=== PATIENT | female | born 1960 | race Caucasian/White ===

== ENCOUNTER 2016-08-16 05:29 | Inpatient (IN) | payer OTHER ==
[2016-08-13 15:46] VITALS: BMI 42.3
[2016-08-16] VITALS (14 sets, daily range): BP systolic 97–140; BP diastolic 51–77; PULSE 72–92; RESP 16–25; Ht 160 cm; Wt 103.6 kg
[~2016-08-16] VITALS: Ht 160 cm; Wt 103.6 kg
[2016-08-16] MEDS ORDERED: POVIDONE IODINE 10% 28.4 GM OINT ONE (06:44)
[2016-08-16 06:45] LABS: ADD SCAN DIFF NO
[2016-08-16] MEDS ORDERED: POLYMYXIN/BACITRACIN 1L IRRIG ONE ×2 (06:45→10:15)
[2016-08-16] MEDS ORDERED: ROPIVACAINE 0.5 % 30 ML VIAL ONE ×2 (06:47→07:27)
[2016-08-16 06:51] LABS: BASOPHIL # 0.1 10^3/ul (0.0-0.1); BASOPHILS % 0.7 % (0.0-2.0); EOSINOPHILS # 0.4 10^3/ul (0.0-0.5); EOSINOPHILS % 4.3 % (0.0-7.0); HEMATOCRIT 39.3 % (37.0-47.0); HEMOGLOBIN 13.3 g/dl (12.0-16.0); LYMPHOCYTES # 2.2 10^3/ul (0.8-2.9); LYMPHOCYTES % 26.3 % (15.0-51.0); MEAN CORPUSCULAR HEMOGLOBIN 28.6 pg (29.0-33.0); MEAN CORPUSCULAR HGB CONC 33.8 g/dl (32.0-37.0); MEAN CORPUSCULAR VOLUME 84.5 fl (82.0-101.0); MEAN PLATELET VOLUME 10.1 fl (7.4-10.4); MONOCYTE # 0.5 10^3/ul (0.3-0.9); MONOCYTES % 5.8 % (0.0-11.0); NEUTROPHIL # 5.3 10^3/ul (1.6-7.5); NEUTROPHILS % 62.8 % (39.0-77.0); PLATELET COUNT 312 10^3/UL (140-415); RED BLOOD COUNT 4.65 10^6/ul (4.20-5.40); RED CELL DISTRIBUTION WIDTH 13.5 % (11.5-14.5); WHITE BLOOD COUNT 8.4 10^3/ul (4.8-10.8)
--- NOTE | 2016-08-16 06:58 | HPN ---
Date/Time of Note Date/Time of Note DATE: 08/16/16 TIME: 06:58 Interval H&P Admission Note Pt. seen H&P reviewed: No system changes LUH FOREMAN MD Aug 16, 2016 06:58
[2016-08-16] MEDS ORDERED: PROPOFOL 200 MG INJ ONE (07:00)
[2016-08-16] MEDS ORDERED: SUCCINYLCHOLINE CHLORIDE 100 MG/5 ML SYG IV ONE (07:00)
[2016-08-16] MEDS ORDERED: CEFAZOLIN 1 GM INJ ONE (07:00)
[2016-08-16 07:01] LABS: INR 0.92; PROTIME 12.4 Sec (12.2-14.2)
[2016-08-16 07:02] LABS: PARTIAL THROMBOPLASTIN TIME 31.7 Sec (25.0-35.0)
[2016-08-16] MEDS ORDERED: PROPOFOL 100 ML ONE ×2 (07:05→07:29)
[2016-08-16] MEDS ORDERED: ROCURONIUM 50 MG INJ ONE (07:05)
[2016-08-16] MEDS ORDERED: MIDAZOLAM 1 MG/ML 2 ML INJ ONE (07:06)
[2016-08-16] MEDS ORDERED: ONDANSETRON 4 MG INJ ONE (07:06)
[2016-08-16] MEDS ORDERED: DEXAMETHASONE 4 MG/ML 1 ML INJ ONE (07:07)
[2016-08-16 07:11] LABS: ALBUMIN/GLOBULIN RATIO 1.21; BILIRUBIN,INDIRECT 0.1 mg/dl (0-1.1); BILIRUBIN,TOTAL 0.1 mg/dl (0.2-1.3); TOTAL PROTEIN 7.3 g/dl (6.1-8.1)
[2016-08-16 07:13] LABS: CREATININE 0.64 mg/dl (0.44-1.00); POTASSIUM 3.5 mmol/L (3.5-5.1)
[2016-08-16] MEDS ORDERED: THROMBIN 5000 UNIT VIAL ONE (07:27)
[2016-08-16] MEDS ORDERED: GELATIN SIZE 100 SPONGE ONE (07:27)
[2016-08-16] MEDS ORDERED: HEPARIN 1000 UNITS/ML 10 ML INJ ONE (07:27)
[2016-08-16] MEDS ORDERED: morphine 2 MG INJ IV PRN (07:30)
[2016-08-16] MEDS ORDERED: OXYCODONE/ACETAMINOPHEN (5/325) TAB PO PRN ×2 (07:30→12:00)
[2016-08-16 07:32] LABS: ADD UMIC YES; URINE BILIRUBIN (Dip) NEGATIVE (NEGATIVE); URINE BLOOD (Dip) NEGATIVE (NEGATIVE); URINE COLOR LT. YELLOW (YELLOW); URINE GLUCOSE (Dip) NEGATIVE (NEGATIVE); URINE KETONES (Dip) NEGATIVE (NEGATIVE); URINE LEUKOCYTE ESTERASE (Dip) TRACE (NEGATIVE); URINE NITRITE (Dip) NEGATIVE (NEGATIVE); URINE TOTAL PROTEIN (Dip) NEGATIVE (NEGATIVE); URINE UROBILINOGEN (Dip) 0.2 E.U./dL (0.1-1.0)
[2016-08-16 07:59] LABS: MUCUS,URINE RARE; URINE RBCS NONE SEEN /HPF (0)
[2016-08-16] MEDS ORDERED: TRIMETHOBENZAMIDE 100 MG/ML VIAL IM PRN (08:30)
[2016-08-16] MEDS ORDERED: MIDAZOLAM 1 MG/ML 2 ML INJ IV PRN (08:30)
[2016-08-16] MEDS ORDERED: EPHEDrine SULFATE 50 MG/5 ML SYG IV PRN (08:30)
[2016-08-16] MEDS ORDERED: ONDANSETRON 4 MG INJ IV PRN ×2 (08:30→12:00)
[2016-08-16] MEDS ORDERED: HYDROmorphONE (0.2 MG/ML) 10ML SYG IV PRN ×2 (08:30)
[2016-08-16] MEDS ORDERED: LABETALOL HCL 20MG INJ IV PRN (08:30)
[2016-08-16] MEDS ORDERED: MEPERIDINE 25 MG INJ IV PRN (08:30)
[2016-08-16] MEDS ORDERED: FENTAnyl 50 MCG/ML VIAL IV PRN ×3 (08:30)
[2016-08-16] MEDS ORDERED: DIPHENHYDRAMINE 50 MG INJ IV PRN (08:30)
[2016-08-16] MEDS ORDERED: hydrALAzine 20 MG INJ IV PRN (08:30)
[2016-08-16] MEDS: SOD CHLORIDE 0.9% 1,000 ML IV SCH ×3 (09:30→13:50)
[2016-08-16] MEDS: ONDANSETRON 4 MG INJ IV PRN ×3 (11:44→22:21)
[2016-08-16] MEDS: HYDROmorphONE (0.2 MG/ML) 10ML SYG IV PRN ×3 (11:44→12:00)
[2016-08-16] MEDS ORDERED: DIPHENHYDRAMINE 25 MG CAP PO PRN (12:00)
[2016-08-16] MEDS ORDERED: HYDROmorphONE 0.2 MG/ML PCA IV SCH (12:00)
[2016-08-16] MEDS ORDERED: morphine 10 MG INJ IV PRN (12:00)
[2016-08-16] MEDS ORDERED: CEFAZOLIN 1 GM INJ IV SCH (12:00)
[2016-08-16] MEDS ORDERED: BISACODYL 10 MG SUPP PR PRN (12:00)
[2016-08-16] MEDS: CEFAZOLIN 2 GM/50 ML (PMX) 50 ML IVPB SCH ×2 (12:30→21:26)
[2016-08-16] MEDS ORDERED: LISI10TA2 PO (12:45)
[2016-08-16] MEDS ORDERED: ALPR0.254 (12:45)
[2016-08-16] MEDS ORDERED: OMEP20CA16 (12:45)
--- NOTE | 2016-08-16 12:48 | OPR ---
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 NAME OF OPERATION: 1. Debridement and removal of loose bodies in the talonavicular joint. 2. Arthrodesis talonavicular joint with claw plate and 4.5 AO cannulated screw 3. Iliac crest bone graft, plus Ignite to the fusion site. 4. Use of fluoroscopy to verify position and alignment of the guide pin on the right, and screws. 5. Short-leg cast. SURGEON: Luh Foreman MD LITHOGRAPHIC PROOFER APPRENTICE: Jeronimo Chino MD ANESTHESIA: General with popliteal block. TOURNIQUET TIME: 121 minutes. DESCRIPTION OF PROCEDURE: The patient taken to the operating room and placed in supine position. S atisfactory popliteal block was given. Satisfactory general anesthesia was administered. The right iliac crest and right lower leg were prepped and draped in the usual manner, 2 grams Ancef given in travenously. An incision was made along the iliac crest by pulling the skin up. Dissection carried down to subcutaneous tissue. There was a lot of fat. We were able to get down to the fascia, spli t it and over the iliac crest retracted the fascia. Using a saw, we made saw cuts to make a trap do or. We then took the bone graft out with different angled curettes until we had a lot of bone graft , plus we had bone marrow aspirate which we mixed together. We put thrombin soaked Gelfoam foaming the area and covered it sterilely. Gloves were changed. The tourniquet was inflated to 275 mmHg. Incision was made over the talonavicular joint, medial to t he anterior tibial tendon, dissection carried down to subcutaneous tissue. Bleeders were coagulated as encountered. The anterior tibial tendon sheath was opened in line with its fibers. The talonav icular capsule was opened proximally and distally. The position was verified under fluoroscopy wher e the talonavicular joint. The capsule was peeled off circumferentially laterally and medially. Pi ns were placed in the distraction device was placed across the talonavicular joint. The joint was q uite arthritic. It was hard to see the actual navicular fracture. Using different angled curettes, the articular cartilage was removed off the talus and off the navicular. There were loose bodies a nd debris was removed with a rongeur. All osteophytes were removed. After all the articular cartil age was removed, a bur was used to remove 1 mm of bone on the talus and the navicular. Multiple "sp ot welds" were made with the bur. Multiple drill holes were made with 0.045 K-wire. Blood was draw n from the patient and mixed with the Ignite and was placed in a paste in a syringe. The distractio n device was removed. Bone graft was inserted into the talonavicular joint with the Ignite. Foot w as appropriately placed in neutral dorsi and plantarflexion and rotation when corrected. is fixed with a K-wire and then a 4.0 AO cannulated guide pin screw was inserted medially. The claw pl ate was then fashioned over the talonavicular joint with 2 screws proximal and 2 distal. The screws were sequentially inserted, checked in the lateral and AP x-rays to make sure they were appropriate length. After all 4 screws had been inserted, the claw plate was distracted with a special distrac tion device. The 4.5 screw was then inserted after being measured. Excellent compression was obtai eric. Remaining Ignite bone graft were placed along the talonavicular joint. Wounds were irrigated with antibiotic solution. The capsule was closed with a running 0 PDS, subcutaneous tissue was clos ed with 3-0 undyed Vicryl and skin with 4-0 black nylon. Saphenous nerve block done with 0.5% ropiv acaine. Simultaneously, the thrombin soaked Gelfoam pads were removed from the iliac crest, wound was irriga yesica with antibiotic solution and the fascia was closed with a running 0 PDS, subcutaneous tissue was closed with 2-0 and 3-0 undyed Vicryl, and the skin with a running 3-0 subcuticular Prolene. Steri -Strips and compression dressing was applied. Compression dressing was then applied on the foot and a short leg cast was applied in neutral position. At the end of procedure, sponge and needle count was correct. Patient tolerated procedure well and the cast was split in the recovery room. CERTIFIED NURSING ASSISTANT INSTRUCTOR ORTHOPEDIC SURGEON: During the procedure, an assistant manager orthopedic surgeon was used at my request. The assistant manager helped with distracting the foot, with inserting the screws while I held the foot reduced, and helped with obtaining the bone graft. Without a skilled orthopedic surgeon kath corado, this could not have been performed and should be compensated appropriately. Dictated By: LUH FOREMAN MD RF/NTS Conf#: [id number] DID#: [id number]
--- NOTE | 2016-08-16 12:58 | RADRPT ---
PROCEDURE: XR Foot. CLINICAL INDICATION: Talonavicular fusion. TECHNIQUE: Right foot x-rays, 4 intraoperative fluoroscopic views. Fluoroscopy time: 0.4 minutes. COMPARISON: None. FINDINGS: Talonavicular fusion hardware is in place. Alignment is well maintained. IMPRESSION: Fluoroscopic assistance provided for talonavicular effusion. RPTAT: HLST .Roma Deleon MD, Date Time Electronically viewed and signed by .Roma Deleon MD, on 08/16/2016 12:57 .T/
[2016-08-16] MEDS: SENNA/DOCUSATE NA (8.6MG/50MG) TAB PO SCH (21:00)
[2016-08-17] MEDS: HYDROmorphONE 0.2 MG/ML PCA IV SCH ×2 (00:25→15:52)
[2016-08-17] MEDS: SOD CHLORIDE 0.9% 1,000 ML IV SCH ×3 (00:26→11:57)
[2016-08-17 00:38] VITALS: BP 108/55; RESP 20
[2016-08-17] MEDS: CEFAZOLIN 2 GM/50 ML (PMX) 50 ML IVPB SCH ×3 (05:21→20:27)
[2016-08-17] MEDS: OXYCODONE/ACETAMINOPHEN (5/325) TAB PO PRN ×3 (05:21→20:28)
[2016-08-17 05:51] VITALS: BP 115/59; PULSE 73; RESP 20
--- NOTE | 2016-08-17 07:06 | PN ---
Date/Time of Note Date/Time of Note DATE: 08/17/16 TIME: 07:01 Assessment/Plan VTE Prophylaxis VTE Prophylaxis Intervention: ambulation, SCD's, other Lines/Catheters IV Catheter Type (from Nrsg): Peripheral IV Urinary Cath still in place: No Assessment/Plan Assessment/Plan 55 y/o F POD 1 s/p right talonavicular fusion with right iliac crest autograft - pain control with oral medications and IV for breakthrough - strict elevation RLE when not mobilizing - NWB RLE - PT today for mobilization - SCD's, ambulation and xarelto - DC when pain is well controlled Subjective 24 Hr Interval Summary Free Text/Dictation Pt had pain overnight which is now controlled. She has had some nausea but no emesis. She is voiding freely. She has not worked with PT yet. Respiratory: no complaints Cardiovascular: no complaints Exam/Review of Systems Vital Signs Vitals Vital Signs Date Time Temp Pulse Resp B/P Pulse Ox O2 Delivery O2 Flow Rate FiO2 08/17/16 05:51 98.3 73 20 115/59 97 Room Air Intake and Output 08/16/16 08/16/16 08/17/16 15:00 23:00 07:00 Intake Total 1700 ml 240 ml 1600 ml Output Total 50 ml 500 ml 700 ml Balance 1650 ml -260 ml 900 ml Exam RLE cast is in place, clean and dry. Cast is split and well fitting extremity is elevated + toe wiggle Sensation intact at tips of all toes CR < 2 sec throughout toes calf is soft right hip dressing is clean dry and intact Constitutional: alert, obese, oriented Head: normocephalic Respiratory: normal air movement Cardiovascular: nl pulses Results Result Diagram: 08/16/16 0600 08/16/16 0600 Medications Medications Current Medications Ondansetron HCl (Zofran Inj) 4 mg Q4H PRN IV NAUSEA Last administered on 22:21; Admin Dose 4 MG; Start 08/16/16 at 07:30 Oxycodone/ Acetaminophen (Percocet (5/ 325)) 1 tab Q4H PRN PO PAIN LEVEL 1-3; Start 08/16/16 at 07:30 Oxycodone/ Acetaminophen (Percocet (5/ 325)) 2 tab Q4H PRN PO PAIN LEVEL 4-6 Last administered on 08/17/16 05:21; Admin Dose 2 TAB; Start 08/16/16 at 07:30 Morphine Sulfate (morphine) 2 mg Q1H PRN IV PAIN; Start 08/16/16 at 07:30 Senna/Docusate Sodium (Senokot-S) 1 tab BID PO ; Start 08/16/16 at 21:00 Magnesium Hydroxide (Milk Of Mag) 30 ml HS PO ; Start 08/18/16 at 21:00 Bisacodyl 10 mg 10 mg DAILY PRN AL CONSTIPATION; Start 08/16/16 at 12:00 Sodium Chloride (NS) 1,000 ml @ 100 mls/hr Q10H IV Last administered on 00:26; Admin Dose 100 MLS/HR; Start 08/16/16 at 13:00 Oxycodone/ Acetaminophen (Percocet (5/ 325)) 2 tab Q4H PRN PO PAIN; Start 08/16 at 12:00 Morphine Sulfate (morphine) 5 mg Q4H PRN IV PAIN LEVEL 7-10; Start 08/16/16 at 12:00 Ondansetron HCl (Zofran Inj) 4 mg Q4H PRN IV NAUSEA AND/OR VOMITING; Start at 12:00 Diphenhydramine HCl 25 mg 25 mg Q4H PRN PO ITCHING; Start 08/16/16 at 12:00 Cefazolin Sodium/ Dextrose (Ancef 2 Gm/50 ml (Pmx)) 50 ml @ 100 mls/hr Q8H IVPB Last administered on 08/17/16 05:21; Admin Dose 100 MLS/HR; Start at 12:30; Stop 08/18/16 at 04:59 Influenza Virus Vaccine (Fluzone) 0.5 ml ONCE ONCE IM* ; Start 08/17/16 at 09:00 ; Stop 08/17/16 at 09:01 Hydromorphone HCl (Dilaudid LOCKSTITCH WAISTLINE JOINER) 0.2 MG DOSE 10... Q4PCA IV Last administered on 08/17/16 00:25; Admin Dose 6 MG; Start 08/17/16 at 00:30 LUH FOREMAN MD Aug 17, 2016 07:06
[2016-08-17] MEDS: ONDANSETRON 4 MG INJ IV PRN (07:17)
[2016-08-17 08:02] VITALS: BP 96/52; RESP 18
[2016-08-17] MEDS: SENNA/DOCUSATE NA (8.6MG/50MG) TAB PO SCH ×2 (08:14→20:28)
[2016-08-17] MEDS ORDERED: INFLUENZA VIRUS VACCINE 0.5 ML (DISPENSING) IM* ONE (09:00)
[2016-08-17] MEDS: RIVAROXABAN 10 MG TABLET PO SCH (18:48)
[2016-08-17 20:32] VITALS: BP 113/61; RESP 18
[2016-08-18] MEDS: OXYCODONE/ACETAMINOPHEN (5/325) TAB PO PRN ×4 (00:49→17:44)
[2016-08-18] MEDS: SOD CHLORIDE 0.9% 1,000 ML IV SCH ×2 (05:00→15:00)
[2016-08-18] MEDS: CEFAZOLIN 2 GM/50 ML (PMX) 50 ML IVPB SCH (05:14)
--- NOTE | 2016-08-18 06:42 | PN ---
Date/Time of Note Date/Time of Note DATE: 08/18/16 TIME: 06:33 Assessment/Plan VTE Prophylaxis VTE Prophylaxis Intervention: ambulation, SCD's Lines/Catheters IV Catheter Type (from Nrsg): Peripheral IV Urinary Cath still in place: No Assessment/Plan Assessment/Plan 55 y/o F POD 2 s/p R talonavicular fusion with iliac crest autograft - NWB RLE - cast immobilization - elevation - pain control with oral medications and IV for breakthrough only - PT - SCD's, ambulation and xarelto - likely DC home today Subjective 24 Hr Interval Summary Free Text/Dictation Patient's pain has been well controlled. She has mobilized with PT. Her nausea has resolved. She is voiding well. Constitutional: no complaints Exam/Review of Systems Vital Signs Vitals Vital Signs Date Time Temp Pulse Resp B/P Pulse Ox O2 Delivery O2 Flow Rate FiO2 08/18/16 01:00 18 08/17/16 20:32 98.2 70 113/61 97 08/17/16 05:51 Room Air Intake and Output 08/17/16 08/17/16 08/18/16 15:00 23:00 07:00 Intake Total 50 ml 1310 ml 400 ml Output Total 400 ml 900 ml Balance 50 ml 910 ml -500 ml Exam Cast is in place and is well fitting Cast is split + toe flexion and extension Sensation is intact on all toe tips cap refill is less than 2 seconds throughout calf is soft hip dressing is clean dry and intact Constitutional: alert, obese, oriented Psych: no complaints Respiratory: normal air movement Cardiovascular: nl pulses Results Result Diagram: 08/16/16 0600 08/16/16 0600 Medications Medications Current Medications Ondansetron HCl (Zofran Inj) 4 mg Q4H PRN IV NAUSEA Last administered on 07:17; Admin Dose 4 MG; Start 08/16/16 at 07:30 Oxycodone/ Acetaminophen (Percocet (5/ 325)) 1 tab Q4H PRN PO PAIN LEVEL 1-3; Start 08/16/16 at 07:30 Oxycodone/ Acetaminophen (Percocet (5/ 325)) 2 tab Q4H PRN PO PAIN LEVEL 4-6 Last administered on 08/18/16 00:49; Admin Dose 2 TAB; Start 08/16/16 at 07:30 Morphine Sulfate (morphine) 2 mg Q1H PRN IV PAIN; Start 08/16/16 at 07:30 Senna/Docusate Sodium (Senokot-S) 1 tab BID PO Last administered on 08/17/16 20:28; Admin Dose 1 TAB; Start 08/16/16 at 21:00 Magnesium Hydroxide (Milk Of Mag) 30 ml HS PO ; Start 08/18/16 at 21:00 Bisacodyl 10 mg 10 mg DAILY PRN IN CONSTIPATION; Start 08/16/16 at 12:00 Sodium Chloride (NS) 1,000 ml @ 100 mls/hr Q10H IV Last administered on 11:57; Admin Dose 100 MLS/HR; Start 08/16/16 at 13:00 Oxycodone/ Acetaminophen (Percocet (5/ 325)) 2 tab Q4H PRN PO PAIN; Start 08/16 at 12:00 Morphine Sulfate (morphine) 5 mg Q4H PRN IV PAIN LEVEL 7-10; Start 08/16/16 at 12:00 Ondansetron HCl (Zofran Inj) 4 mg Q4H PRN IV NAUSEA AND/OR VOMITING; Start at 12:00 Diphenhydramine HCl (Benadryl) 25 mg Q4H PRN PO ITCHING; Start 08/16/16 at 12: 00 Hydromorphone HCl (Dilaudid PACKING MACHINE TENDER) 0.2 MG DOSE 10... Q4PCA IV Last administered on 08/17/16 15:52; Admin Dose 6 MG; Start 08/17/16 at 00:30 LUH FOREMAN MD Aug 18, 2016 06:42
[2016-08-18 07:00] VITALS: BP 109/60; RESP 20
[2016-08-18] MEDS: SENNA/DOCUSATE NA (8.6MG/50MG) TAB PO SCH (08:14)
[2016-08-18] MEDS: RIVAROXABAN 10 MG TABLET PO SCH (17:43)
[2016-08-18] MEDS ORDERED: MAGNESIUM HYDROXIDE 30ML CUP PO SCH (21:00)
--- NOTE | 2016-08-18 21:45 | DS ---
DATE OF ADMISSION: 08/16/2016 DATE OF DISCHARGE: 08/18/16 DISCHARGE DIAGNOSIS: Degenerative joint disease of the right talonavicular joint. SURGERY: On 08/16/2016: 1. Debridement of talonavicular joint with arthrodesis of talonavicular joint with plate and screws. 2. Iliac crest bone graft with Ignite to the fusion site. HISTORY OF PRESENT ILLNESS: The patient is a 55-year-old female with long history of pain in her right foot. 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 PAST MEDICAL HISTORY: See history and physical record. PHYSICAL EXAMINATION: Normal except the orthopedic exam, which revealed pain and decreased motion and strength about the foot. DIAGNOSTIC DATA: Laboratory was normal. Chest x-ray was clear. EKG was stable. HOSPITAL COURSE: The patient taken to the operating room and underwent above- mentioned procedure. Postoperatively, she was up ambulating the first postoperative day and will be discharged on the second postoperative day on pain pills, prescription for Xarelto. Ambulating, nonweightbearing on crutches to be followed in the office in 1 week. Dictated By: LUH FOREMAN MD RF/FLOR Conf#: [id number] DID#: [id number]
== END 2016-08-18 18:55 | disposition home or self-care (01) | DRG 493 ==
LOC: REC 05:29 → EDSTATUS 07:00 → MS1 13:20
PROVIDERS: ADMIT Orthopaedic Surgery; ATTEND Orthopaedic Surgery
PROC: 0SGF04Z Fusion of Right Ankle Joint with Internal Fixation Device, Open Approach (ICD-10-PCS; 2016-08-16)
PROC: 0QB20ZZ Excision of Right Pelvic Bone, Open Approach (ICD-10-PCS; 2016-08-16)
PROC: 0SGF07Z Fusion of Right Ankle Joint with Autologous Tissue Substitute, Open Approach (ICD-10-PCS; principal; 2016-08-16 07:00)
DX: M19.071 Primary osteoarthritis, right ankle and foot (principal); S92.251K Displaced fracture of navicular [scaphoid] of right foot, subsequent encounter for fracture with nonunion; Z68.41 Body mass index [BMI] 40.0-44.9, adult; I10 Essential (primary) hypertension; F41.9 Anxiety disorder, unspecified; E66.01 Morbid (severe) obesity due to excess calories; W01.0XXD Fall on same level from slipping, tripping and stumbling without subsequent striking against object, subsequent encounter
CPT/HCPCS: 73630; 80053; 81001; 81003; 85025; 85610; 85730; 90686; 97116; 97162; 97530; C1713; J0330; J0690; J1100; J1170; J1644; J2175; J2250; J2405; J2795; J3010; J7030